=== PATIENT | male | born 1955 | race African-American/Black ===

== ENCOUNTER 2017-01-05 12:24 | Emergency (ER) | payer OTHER ==
[~2017-01-05] VITALS: Ht 175.3 cm; Wt 68.2 kg
[~2017-01-05 12:24] MED LIST: PERCOCET 5/31 TABLET PO; SILVADENE20 GM TP
[2017-01-05 13:24] LABS: HEMATOCRIT 38.6 % (38.0-50.0); MCH 31.6 PG (29.0-34.0); MCHC 35.5 G/DL (30.0-36.0); MCV 88.9 FL (86-99); MEAN PLAT.VOLUME 9.9 uM^3 (9.0-12.4); PLATELET COUNT 165 K/uL (156-360); RBC DIS.WIDTH-CV 13.2 % (11.8-14.6); RBC DIS.WIDTH-SD 43.3 % (39-53); RED BLOOD COUNT 4.34 M/uL (4.00-5.50); WHITE BLOOD COUNT 6.9 K/uL (4.1-10.2)
[2017-01-05 13:47] LABS: CHLORIDE 93 mEq/L (99-109); POTASSIUM 3.8 mEq/L (3.7-5.4); SODIUM 127 mEq/L (136-147)
[2017-01-05 13:48] LABS: GLUCOSE 95 mg/dL (70-99)
[2017-01-05 13:50] LABS: ANION GAP 14 MEQ/L (2-14)
[2017-01-05 13:52] LABS: GFR ESTIMATE (CALCULATED) > 59 mL/min/
[2017-01-05 13:53] LABS: UREA NITROGEN (BUN) 11 mg/dL (9-23)
[2017-01-05 14:29] LABS: INFLUENZA A VIRAL ANTIGEN NEGATIVE; INFLUENZA B VIRAL ANTIGEN POSITIVE
[2017-01-05 15:30] VITALS: BP 112/71
[2017-01-05] MEDS ORDERED: LORATADINE10 M2 PO (15:31)
[2017-01-05] MEDS ORDERED: VENTOLIN HFA18 GM IH (15:31)
== END 2017-01-05 15:35 | disposition home or self-care (01) ==
LOC: EME 12:24
PROVIDERS: Emergency Medicine
DX: J11.1 Influenza due to unidentified influenza virus with other respiratory manifestations (principal); E87.1 Hypo-osmolality and hyponatremia; F17.200 Nicotine dependence, unspecified, uncomplicated; I10 Essential (primary) hypertension; Z87.01 Personal history of pneumonia (recurrent)
CPT/HCPCS: 71020; 80048; 83605; 85027; 87502; 99281; 99285; J7030